=== PATIENT | female | born 1965 | race American Indian/Alaskan Native ===

== ENCOUNTER 2016-11-17 16:17 | Emergency (ER) | payer MEDICARE ==
[2016-11-17] MEDS ORDERED: CLEOCIN 600 MG/50 mL 50 ML IV ONE (21:59)
[2016-11-17] MEDS ORDERED: MORPHINE IV ONE (22:00)
[2016-11-17 22:21] LABS: Basophils % (Auto) 0.5 % (0.0-1.8); Hematocrit 39.1 % (30.3-42.9); Hemoglobin 13.4 gm/dl (10.1-14.3); Mean Corpuscular HGB Conc 34 % (30-34); Mean Corpuscular Hemoglobin 34 pg (28-32); Mean Corpuscular Volume 99 fl (79-97); Platelet Count 221 K/mm3 (140-440); Red Blood Count 3.94 M/mm3 (3.65-5.03); Red Cell Distribution Width 14.9 % (13.2-15.2); White Blood Count 10.2 K/mm3 (4.5-11.0)
[2016-11-17 22:37] LABS: BUN/Creatinine Ratio 13.33; Blood Urea Nitrogen 4 mg/dL (7-17); Carbon Dioxide 39 mmol/L (22-30); Chloride 89.9 mmol/L (98-107); Glucose 112 mg/dL (65-100); Sodium 141 mmol/L (137-145)
[2016-11-17] MEDS ORDERED: NACL ONE (22:48)
[2016-11-17 22:56] LABS: Anion Gap 15 mmol/L; Potassium 2.7 mmol/L (3.6-5.0)
[2016-11-17] MEDS ORDERED: XYLOCAINE 1%/ EPI 1:100,000 INFILTRATI ONE (23:51)
--- NOTE | 2016-11-17 23:57 | Cat Scan Report ---
FINAL REPORT PROCEDURE: CT FACIAL BONES W CON TECHNIQUE: Computerized tomography of the facial bones and soft tissues with axial and coronal sections was performed from the cranial aspect of the frontal sinuses to the caudal portion of the mandible following the IV injection of iodinated nonionic contrast. HISTORY: facial abscess left side near jaw COMPARISON: No prior studies are available for comparison. FINDINGS: Bones: No significant abnormality. Paranasal sinuses: Clear. Soft tissues: There is left facial and submandibular subcutaneous swelling and induration indicating cellulitis. There is no discrete abscess. There is reactive submental and bilateral submandibular lymphadenopathy greater on the left. The largest node is in the left submandibular region measuring 14 millimeters.. Abnormal enhancement: None. Other: None. IMPRESSION: Left-sided facial cellulitis. Submandibular and submental lymphadenopathy. There is no abscess. There is no bony abnormality. There is no sinusitis.
--- NOTE | 2016-11-18 00:31 | Emergency Department Report ---
ED ENT HPI - General Chief complaint: Skin/Abscess/Foreign Body Stated complaint: CYST LEFT SIDE JAW Time Seen by Provider: 11/17/16 21:40 Source: patient Mode of arrival: Ambulatory Limitations: No Limitations - History of Present Illness Initial comments: 51-year-old female past medical history NM, hypertension, hyperlipidemia, diabetes presents with complaint of 2-3 days of left-sided facial swelling and erythema, pain on left cheek. Patient states she has had multiple abscesses in the past. Also complaining of redness to tip of nose. Onset/Timin -: days(s) Location: nose, other (left cheek) Severity: moderate Severity scale (0 -10): 8 Quality: sharp Consistency: constant Worsens with: none - Related Data Home Medications Medication Instructions Recorded Confirmed Last Taken Albuterol Sulfate [Ventolin HFA] 2 puff IH Q4H PRN 07/12/13 07/12/13 Unknown Aspirin [Baby Aspirin] 324 mg PO ONCE 07/12/13 07/12/13 Unknown Clopidogrel [Plavix] 75 mg PO QDAY 07/12/13 07/12/13 Unknown Gabapentin 300 mg PO 07/12/13 07/12/13 Unknown Metoprolol [Lopressor] 50 mg PO BID 07/12/13 07/12/13 Unknown Omeprazole [Prilosec] 40 mg PO QDAY 07/12/13 07/12/13 Unknown Pravastatin Sodium [Pravastatin] 40 mg PO QHS 07/12/13 07/12/13 Unknown glyBURIDE [Diabeta] 5 mg PO DAILY 07/12/13 07/12/13 Unknown metFORMIN [Glucophage] 1,000 mg PO BID 07/12/13 07/12/13 Unknown Previous Rx's Medication Instructions Recorded Last Taken Type Acetaminophen [Acetaminophen TAB] 500 mg PO Q6HR PRN #25 tablet 11/18/16 Unknown Rx Clindamycin [Clindamycin CAP] 300 mg PO Q6H #28 capsule 11/18/16 Unknown Rx Allergies Allergy/AdvReac Type Severity Reaction Status Date / Time tetanus toxoid, adsorbed Allergy Dizziness Verified 07/12/13 16:17 ED Dental HPI - General Chief complaint: Skin/Abscess/Foreign Body Stated complaint: CYST LEFT SIDE JAW Time Seen by Provider: 11/17/16 21:40 Source: patient Mode of arrival: Ambulatory Limitations: No Limitations - Related Data Home Medications Medication Instructions Recorded Confirmed Last Taken Albuterol Sulfate [Ventolin HFA] 2 puff IH Q4H PRN 07/12/13 07/12/13 Unknown Aspirin [Baby Aspirin] 324 mg PO ONCE 07/12/13 07/12/13 Unknown Clopidogrel [Plavix] 75 mg PO QDAY 07/12/13 07/12/13 Unknown Gabapentin 300 mg PO 07/12/13 07/12/13 Unknown Metoprolol [Lopressor] 50 mg PO BID 07/12/13 07/12/13 Unknown Omeprazole [Prilosec] 40 mg PO QDAY 07/12/13 07/12/13 Unknown Pravastatin Sodium [Pravastatin] 40 mg PO QHS 07/12/13 07/12/13 Unknown glyBURIDE [Diabeta] 5 mg PO DAILY 07/12/13 07/12/13 Unknown metFORMIN [Glucophage] 1,000 mg PO BID 07/12/13 07/12/13 Unknown Previous Rx's Medication Instructions Recorded Last Taken Type Acetaminophen [Acetaminophen TAB] 500 mg PO Q6HR PRN #25 tablet 11/18/16 Unknown Rx Clindamycin [Clindamycin CAP] 300 mg PO Q6H #28 capsule 11/18/16 Unknown Rx Allergies Allergy/AdvReac Type Severity Reaction Status Date / Time tetanus toxoid, adsorbed Allergy Dizziness Verified 07/12/13 16:17 ED Review of Systems ROS: Stated complaint: CYST LEFT SIDE JAW Other details as noted in HPI ED Past Medical Hx - Past Medical History Hx Hypertension: Yes Hx Heart Attack/AMI: Yes Hx Diabetes: Yes Additional medical history: sleep apnea - Surgical History Additional Surgical History: bypass - Social History Smoking Status: Current Every Day Smoker Substance Use Type: Alcohol, Prescribed - Medications Home Medications: Home Medications Medication Instructions Recorded Confirmed Last Taken Type Albuterol Sulfate [Ventolin HFA] 2 puff IH Q4H PRN 07/12/13 07/12/13 Unknown History Aspirin [Baby Aspirin] 324 mg PO ONCE 07/12/13 07/12/13 Unknown History Clopidogrel [Plavix] 75 mg PO QDAY 07/12/13 07/12/13 Unknown History Gabapentin 300 mg PO 07/12/13 07/12/13 Unknown History Metoprolol [Lopressor] 50 mg PO BID 07/12/13 07/12/13 Unknown History Omeprazole [Prilosec] 40 mg PO QDAY 07/12/13 07/12/13 Unknown History Pravastatin Sodium [Pravastatin] 40 mg PO QHS 07/12/13 07/12/13 Unknown History glyBURIDE [Diabeta] 5 mg PO DAILY 07/12/13 07/12/13 Unknown History metFORMIN [Glucophage] 1,000 mg PO BID 07/12/13 07/12/13 Unknown History Acetaminophen [Acetaminophen TAB] 500 mg PO Q6HR PRN #25 tablet 11/18/16 Unknown Rx Clindamycin [Clindamycin CAP] 300 mg PO Q6H #28 capsule 11/18/16 Unknown Rx ED Physical Exam - General Limitations: No Limitations General appearance: alert, in no apparent distress - Head Head exam: Present: atraumatic, normocephalic - Eye Eye exam: Present: normal appearance, PERRL, EOMI - ENT ENT exam: Present: mucous membranes moist - Neck Neck exam: Present: normal inspection - Respiratory Respiratory exam: Present: normal lung sounds bilaterally. Absent: respiratory distress - Cardiovascular Cardiovascular Exam: Present: regular rate, normal rhythm. Absent: systolic murmur, diastolic murmur, rubs, gallop - GI/Abdominal GI/Abdominal exam: Present: soft, normal bowel sounds - Extremities Exam Extremities exam: Present: normal inspection - Back Exam Back exam: Present: normal inspection - Neurological Exam Neurological exam: Present: alert, oriented X3, CN II-XII intact, normal gait - Psychiatric Psychiatric exam: Present: normal affect, normal mood - Skin Skin exam: Present: warm, dry, intact, normal color. Absent: rash - Expanded Skin Exam Expanded Type of lesion: Present: abscess Distribution of rash: face Description of rash: Present: tenderness, erythematous, swelling, fluctuant 1 - Abscess on the left cheek with mild surrounding erythema and redness induration and palpable fluctuance. No intraoral involvement on clinical exam ED Course Vital Signs 11/17/16 11/17/16 11/17/16 17:13 22:29 22:59 Temperature 97.7 F Pulse Rate 120 H Respiratory 20 20 20 Rate Blood Pressure 206/104 Blood Pressure [Right] O2 Sat by Pulse 99 Oximetry 11/18/16 00:56 Temperature 98.8 F Pulse Rate 105 H Respiratory 20 Rate Blood Pressure Blood Pressure 230/113 [Right] O2 Sat by Pulse 99 Oximetry - I & D Left Cheek Site: left cheek Blade Size: 11 I & D Procedure: betadine prep Progress: 6 mL of lidocaine with epinephrine placed a long site of abscess left cheek, small less than 1 cm incision made on face following Langerhans lines, almost immediate extrusion of process, wound culture sent. Procedure tolerated well, minimal amount of packing placed, 3 inches of iodoform gauze ED Medical Decision Making - Lab Data Result diagrams: 11/17/16 22:09 11/17/16 22:09 - Medical Decision Making A/P: Left-sided facial abscess 1-I&D performed with extraction of moderate amount of pus, wound culture sent 2-patient placed on clindamycin 3-I advised patient to return to the ED in 48-72 hours for wound check 4-for discharge patient's blood pressure was above 200, patient stated that she could not wait any longer that she needed to get home for personal matters, I advised patient to wait so that we could adjust her blood pressure she came in complaining of headache as well, patient stated that she absolutely could not wait and needed to leave. I advised patient that this could be dangerous to her risks of stroke and heart attack, patient stated she understood those risks and still wishes to leave. Patient signed AMA form 5-case discussed with Dr. Whitfield Critical care attestation.: If time is entered above; I have spent that time in minutes in the direct care of this critically ill patient, excluding procedure time. ED Disposition Clinical Impression: Facial abscess Cellulitis Qualifiers: Site of cellulitis: face Qualified Code(s): L03.211 - Cellulitis of face Disposition: LEFT AGAINST MEDICAL ADVICE Is pt being admited?: No Does the pt Need Aspirin: No Condition: Stable Instructions: Cellulitis (ED), Abscess Incision and Drainage (ED), Abscess (ED) Additional Instructions: Advised patient to return to the ED in 24-48 hours for wound check. Patient strictly advised to return to the ED if she develops any fever or chills reaccumulation of abscess or if redness spreads beyond the marked borders states instructions, expressed clear understanding and agreed to this plan. Prescriptions: Acetaminophen [Acetaminophen TAB] 500 mg PO Q6HR PRN #25 tablet PRN Reason: Pain Clindamycin [Clindamycin CAP] 300 mg PO Q6H #28 capsule Referrals: PRIMARY CARE, [Primary Care Provider] - 3-5 Days Forms: AMA Form Time of Disposition: 00:45
[2016-11-18 00:57] VITALS: BP 230/113
== END 2016-11-18 01:03 | disposition left against medical advice (07) ==
LOC: ED 16:17
DX: L02.01 Cutaneous abscess of face (principal); L03.211 Cellulitis of face; I10 Essential (primary) hypertension; E11.9 Type 2 diabetes mellitus without complications; I25.2 Old myocardial infarction; F17.200 Nicotine dependence, unspecified, uncomplicated; Z79.82 Long term (current) use of aspirin; Z88.8 Allergy status to other drugs, medicaments and biological substances
CPT/HCPCS: 36415; 70487; 80048; 82140; 85025; 87116; 96365; 96366; 96375; 99284; J2270; Q9967; 87076; 87186